=== PATIENT | female | born 1970 | race Two or more races ===

== ENCOUNTER 2016-03-23 09:14 | Emergency (ER) | payer OTHER ==
[2016-03-23] MEDS ORDERED: DOXYCYCLINE HYCLATE 100 MG IV VIAL ONE (10:44)
[2016-03-23] MEDS ORDERED: LACTATED RINGERS 1,000 ML ONE (10:44)
[2016-03-23] MEDS ORDERED: ONDANSETRON 4 MG/2ML 2 ML VIAL ONE (10:44)
[2016-03-23] MEDS ORDERED: SODIUM CHLORIDE 0.9% 100 ML IV ONE (10:45)
[2016-03-23 10:50] LABS: ABSOLUTE NEUTROPHIL COUNT 3.5 K/mm3 (1.8-7.7); BASO # 0.1 K/mm3 (0.0-0.2); BASO % 0.8 % (0.2-1.0); EOS # 1.5 (0.0-0.5); EOS % 20.2 % (0.9-2.9); HEMATOCRIT 38.3 % (37.0-47.0); HEMOGLOBIN 12.1 gm/l (12.0-16.0); IMM NEUT% 0.1 % (0-1); LYMPH # 1.9 (1.0-4.8); LYMPH % 25.6 % (15-45); MEAN CELL VOLUME 89.9 fl (81.0-99.0); MEAN CORPUSCULAR HEMOGLOBIN 28.4 pg (27.0-31.0); MEAN CORPUSCULAR HGB CONC 31.6 g/dl (33.0-37.0); MEAN PLATELET VOLUME 10.2 fl (7.4-10.4); MONO # 0.6 (0.0-0.8); MONO % 7.7 % (4-12); NEUT % 45.6 % (43-75); PLATELET COUNT 262 K/mm3 (130-400); RED CELL DISTRIBUTION WIDTH 13.7 % (11.5-14.5)
[2016-03-23 11:05] LABS: CALCIUM 8.9 mg/dL (8.6-10.3)
[2016-03-23 11:31] LABS: NEUTROPHILS 37 % (43-75); TOTAL CELLS COUNTED 100
[2016-03-23 11:32] LABS: ATYPICAL LYMPHOCYTE 0 %; BAND 0 % (0-10); BASOPHIL 0 % (0-1); EOSINOPHIL 19 % (1-3); LYMPHOCYTE 41 % (15-45); MONOCYTE 3 % (4-12); PLATELET ESTIMATE NORMAL (NORMAL)
--- NOTE | 2016-03-23 11:54 | US ---
DUPLX SCAN VEIN EXT UNI LT COMPARISON: None. HISTORY: 45 years old. Left calf red and swollen. Diffuse rash. On antibiotics. Technique: The veins of the left lower extremity were interrogated with real-time grayscale ultrasound, color Doppler, and spectral Doppler. Vessel compressibility and flow augmentation were assessed. FINDINGS: Deep venous thrombosis: None. Common femoral vein: Normal. Proximal femoral vein: Normal. Saphenous vein junction: Normal. Mid to distal femoral vein: Normal. Popliteal vein: Normal. Peroneal veins: Normal. Posterior tibial veins: Normal. Medial left calf: Diffuse edema. IMPRESSION: 1. No deep venous thrombosis of the left lower cavity. 2. Cellulitis, medial left calf. Report was sent to the emergency department [facility] 03/23/2016 at 11:56
== END 2016-03-23 12:52 | disposition home or self-care (01) ==
LOC: ED 09:14
DX: L03.116 Cellulitis of left lower limb (principal); L29.9 Pruritus, unspecified
CPT/HCPCS: 83605; 85025; 80048; 96375; 99283 ×2; 96365; 93971; J2405; J7120; J7050